=== PATIENT | female | born 1985 ===

== ENCOUNTER 2016-07-31 23:08 | Emergency (ER) | payer SELFPAY | END 2016-08-01 00:15 | disposition home or self-care (01) | LOC: H.EROB2 23:08 | DX: O47.02 False labor before 37 completed weeks of gestation, second trimester (principal); Z3A.20 20 weeks gestation of pregnancy ==

== ENCOUNTER 2016-10-25 08:14 | Emergency (ER) | payer SELFPAY ==
[2016-10-25 09:38] LABS: HEMATOCRIT 37.1 % (34.0-47.0); MEAN CELL VOLUME 91.5 fl (81.0-99.0); MEAN CORPUSCULAR HEMOGLOBIN 29.9 pg (27.0-31.0); MEAN CORPUSCULAR HGB CONC 32.7 g/dL (33.0-37.0); RED CELL DISTRIBUTION WIDTH 14.5 % (11.5-14.5); WHITE BLOOD COUNT 8.5 K/uL (4.8-10.8)
--- NOTE | 2016-10-25 09:59 | OBHP ---
Datetime: 10/25/2016 09:27 IP Adm Impression: Term, intrauterine IP Admit Plan: Observation/Evaluation; Discharge home Admit Comment, IP Provider: 31 y/o @ 41.0 weeks via LMP and 13 wk u/s presents for IOL. No comp laints. Reports very mild (2/10 pain) ctx every hour or more. Denies VB/LOF and reports good FM. Coy es fever/chills, headaches, visual disturbances, epigastric pain, CP/SOB, N/V/D/C, urinary symptoms. : CFH, uncomplicated course. O+, Ab neg, GBS neg, HBsAG neg, HIV/RPR neg, Rubella Immune, PPD neg, GC/CHL neg, Tdap on 08/11. POBHx: 2 NSVDs, FT, uncomplicated PMHx: none MEDS: PNVs PsurgHx: none Social: denies ETOH, Tobacco, drug abuse A/P: 31 y/o @ 41.0 weeks IUP for scheduled IOL. OBH ADDENDUM: Pt seen _ exmined by me. agree w/ above s: denies srom, decreased fm or vag bleeding p: pt prefers to return to [facility] tonight for induction. return @ 18:oo Pelvic Type - PN: Adequate Extremities - PN: Normal Abdomen - PN: Normal Back - PN: Normal Breast - PN: Normal Lungs - PN: Normal Heart - PN: Normal Thyroid - PN: Normal Neurologic - PN: Normal HEENT - PN: Normal General - PN: Normal Presentation-Admit: Vertex FHR - Baseline A Provider: 140 Membranes, Provider: Intact Contraction Comments Provider: q12 min Comments, ACOG Physical Exam: ROS: 12 points reviewed, found to be negative Bedside u/s: fetus in vertex position EGA AdmitDate IP: 41.0 Vital Signs Provider: Reviewed; Within Normal Limits IP Chief Complaint: Scheduled induction of labor NICHD Variability Prov Fetus A: Moderate 6-25bpm NICHD Accel Fetus A IP Provider: 15X15 FHR Category Provider Fetus A: Category I NICHD Decel Fetus A IP Provider: None Dilatation, Provider: 1 Effacement, Provider: 60 Station, Provider: -2 Genitourinary Exam: Normal DTRs - PN: Normal
== END 2016-10-25 11:00 | disposition home or self-care (01) ==
LOC: H.EROB2 08:14 → H.L&D 10:55 → H.EROB2 11:00
DX: O48.0 Post-term pregnancy (principal); Z3A.41 41 weeks gestation of pregnancy; O47.1 False labor at or after 37 completed weeks of gestation

== ENCOUNTER 2016-10-25 21:05 | Inpatient (IN) | payer MEDICAID, SELFPAY ==
[2016-10-25 21:22] VITALS: BMI 32.5
[2016-10-25] MEDS ORDERED: Lactated Ringer's 1,000 ML IV SCH ×2 (21:22→21:30)
[2016-10-25] MEDS ORDERED: Nalbuphine 20 mg/ml Inj (1 ml) IVP PRN (21:38)
[2016-10-25 22:28] LABS: BASO % 0.3 % (0.0-2.0); EOS # 0.1 K/uL (0.0-0.7); EOS % 0.8 % (0.0-4.0); LYMPH # 2.4 K/uL (1.0-4.3); LYMPH % 25.5 % (20.0-40.0); MEAN CELL VOLUME 91.7 fl (81.0-99.0); MEAN CORPUSCULAR HEMOGLOBIN 30.5 pg (27.0-31.0); MEAN CORPUSCULAR HGB CONC 33.3 g/dL (33.0-37.0); MEAN PLATELET VOLUME 10.5 fl (7.2-11.7); MONO # 0.7 K/uL (0.0-0.8); MONO % 7.1 % (0.0-10.0); NEUT # 6.2 K/uL (1.8-7.0); NEUT % 66.3 % (50.0-75.0); RED CELL DISTRIBUTION WIDTH 14.2 % (11.5-14.5); WHITE BLOOD COUNT 9.3 K/uL (4.8-10.8)
[2016-10-26 02:13] VITALS: BP 101/57; PULSE 57; RESP 17; TEMP 97.9
--- NOTE | 2016-10-26 07:40 | OBHP ---
Datetime: 10/25/2016 21:26 IP Adm Impression: Term, intrauterine IP Admit Plan: Admit to unit; Initiate labor protocol; Initiate labor induction protocol Admit Comment, IP Provider: 31 y/o @ 41.0 weeks via LMP and 13 wk u/s presents for IOL. No comp laints. Reports very mild (2/10 pain) ctx every hour or more. Denies VB/LOF and reports good FM. Coy es fever/chills, headaches, visual disturbances, epigastric pain, CP/SOB, N/V/D/C, urinary symptoms. : CFH, uncomplicated course. O+, Ab neg, GBS neg, HBsAG neg, HIV/RPR neg, Rubella Immune, PPD neg, GC/CHL neg, Tdap on 08/11. POBHx: 2 NSVDs, FT, uncomplicated PMHx: none MEDS: PNVs PsurgHx: none Social: denies ETOH, Tobacco, drug abuse A: 31 y/o @ 41.0 weeks IUP for scheduled IOL. P: admit to unit initiate labor protocol initiate induction protocol continuous monitoring LR IV bolus LR IV @ 125 cervidil ordered for induction CBC w/ diff ordered type and screen ordered anticipate vaginal delivery Cervidil in @ 22:00 Ty Zelaya MD Instruction Librarian OBH ADDENDUM: pt seen _ examined by me. agree with above assessment and plan. Pelvic Type - PN: Adequate Extremities - PN: Not Done Abdomen - PN: Normal Back - PN: Not Done Breast - PN: Not Done Lungs - PN: Normal Heart - PN: Normal Thyroid - PN: Not Done Neurologic - PN: Not Done HEENT - PN: Normal General - PN: Normal FHR - Baseline A Provider: 140 Membranes, Provider: Intact IP Hx Assessment: The History has been Reviewed and is Current EGA AdmitDate IP: 41.0 Vital Signs Provider: Reviewed; Within Normal Limits IP Chief Complaint: Scheduled induction of labor NICHD Variability Prov Fetus A: Moderate 6-25bpm NICHD Accel Fetus A IP Provider: 15X15 FHR Category Provider Fetus A: Category I NICHD Decel Fetus A IP Provider: None Dilatation, Provider: 1 Effacement, Provider: 60 Station, Provider: -2 Genitourinary Exam: Normal DTRs - PN: Not Done
--- NOTE | 2016-10-26 07:46 | OBADHP ---
Datetime: 10/25/2016 21:26 Admit Comment, IP Provider: 31 y/o @ 41.0 weeks via LMP and 13 wk u/s presents for IOL. No comp laints. Reports very mild (2/10 pain) ctx every hour or more. Denies VB/LOF and reports good FM. Coy es fever/chills, headaches, visual disturbances, epigastric pain, CP/SOB, N/V/D/C, urinary symptoms. : CFH, uncomplicated course. O+, Ab neg, GBS neg, HBsAG neg, HIV/RPR neg, Rubella Immune, PPD neg, GC/CHL neg, Tdap on 08/11. POBHx: 2 NSVDs, FT, uncomplicated PMHx: none MEDS: PNVs PsurgHx: none Social: denies ETOH, Tobacco, drug abuse A: 31 y/o @ 41.0 weeks IUP for scheduled IOL. P: admit to unit initiate labor protocol initiate induction protocol continuous monitoring LR IV bolus LR IV @ 125 cervidil ordered for induction CBC w/ diff ordered type and screen ordered anticipate vaginal delivery Cervidil in @ 22:00 Ty Zelaya MD Dynamo Repairer OBH ADDENDUM: pt seen _ examined by me. agree with above assessment and plan. Pelvic Type - PN: Adequate Extremities - PN: Not Done Abdomen - PN: Normal Back - PN: Not Done Breast - PN: Not Done Lungs - PN: Normal Heart - PN: Normal Thyroid - PN: Not Done Neurologic - PN: Not Done HEENT - PN: Normal General - PN: Normal FHR - Baseline A Provider: 140 Membranes, Provider: Intact IP Hx Assessment: The History has been Reviewed and is Current Vital Signs Provider: Reviewed; Within Normal Limits IP Chief Complaint: Scheduled induction of labor NICHD Variability Prov Fetus A: Moderate 6-25bpm NICHD Accel Fetus A IP Provider: 15X15 FHR Category Provider Fetus A: Category I NICHD Decel Fetus A IP Provider: None Dilatation, Provider: 1 Effacement, Provider: 60 Station, Provider: -2 Genitourinary Exam: Normal DTRs - PN: Not Done EGA AdmitDate IP: 41.0 IP Adm Impression: Term, intrauterine IP Admit Plan: Admit to unit; Initiate labor protocol; Initiate labor induction protocol Datetime: 10/25/2016 09:27 Presentation-Admit: Vertex Contraction Comments Provider: q12 min Comments, ACOG Physical Exam: ROS: 12 points reviewed, found to be negative Bedside u/s: fetus in vertex position
[2016-10-26] MEDS ORDERED: Oxytocin 30 units/LR 500ML 30 U/500 ML BAG IV SCH (10:35)
[2016-10-26] MEDS ORDERED: Oxytocin 30 units/LR 500ML 30 U/500 ML BAG IV ONE (10:45)
--- NOTE | 2016-10-26 11:03 | OBPN ---
Datetime: 10/26/2016 10:55 IP Progress Impression: Normal progression of labor; Reassuring heart rate IP Informed Consent Obtain: Vaginal Delivery; Risks, Benefits and Alternatives Discussed IP Progress Plan: Augmentation Pool Provider: Negative Membranes, Provider: Intact Contraction Comments Provider: occ FHR - Baseline A Provider: 140 Presentation-Admit: Vertex IP Progress Note Comment: OB Hospitalist oncall...sign out rec'd earlier Cervidil removed. Latnetn phase of labor Discussion with pt...will start pitocin augmentation NICHD Accel Fetus A IP Provider: 15X15 FHR Category Provider Fetus A: Category I NICHD Variability Prov Fetus A: Moderate 6-25bpm NICHD Decel Fetus A IP Provider: None Datetime: 10/25/2016 21:26 Vital Signs Provider: Reviewed; Within Normal Limits Dilatation, Provider: 1 Effacement, Provider: 60 Station, Provider: -2
[2016-10-26] MEDS ORDERED: Oxycodone/Acetaminophen 5/325 mg Tab PO PRN ×2 (13:28→15:37)
[2016-10-26] MEDS ORDERED: Benzocaine/Menthol SPRAY TOP PRN (13:28)
--- NOTE | 2016-10-26 16:56 | OBDS ---
DELIVERY PERSONNEL Delivery Doctor: Yg Castro DO Dialysis Nurse: Nubia Tapia RN Resident: Jamal MATERNAL INFORMATION Delivery Anesthesia: Local Medications in Delivery: pitocin 30units Estimated Blood Loss (ml): 200 Placenta Cultured: No Maternal Complications: None Provider Comments: Over intact perineum, of live . Thin meconium noted upon delivery. I nfant was crying spontaneously and bulb suctioned nasopharygeally. 9,9. Peds was called. Fernandez pinedo was delivered intact spontaneously. EBL 200cc She remained stable LABOR SUMMARY EDC: 10/18/2016 00:00 No. Babies in Womb: 1 Attempted: No Labor Anesthesia: None LABOR INFORMATION Reason for Induction: Postterm Complete Dilatation: 10/26/2016 13:00 Cervical Ripening Agents: Cervidil (Annotations: cervidil placed by LENIN Zelaya MD) Oxytocin: Induction Group B Beta Strep: Negative Steroids Given: None Reason Steroids Not Administered: Not Applicable MEMBRANES Membranes Rupture Method: Spontaneous STAGES OF LABOR Stage 2 hrs: 0 Stage 2 min: 5 Stage 3 hrs: 0 Stage 3 min: 10 VAGINAL DELIVERY Episiotomy: None Laceration Extension: First Degree Laceration Type: Perineal Other Laceration: Left inner labial laceration Laceration Repair Note: 1% Lidocaine infiltrated (5cc). Left inner labial laceration repaired with 3.0 Vicryl Rapide and perineal laceratoin repaired with 2.0 Vicryl Rapide BABY A INFORMATION Infant Delivery Date/Time: 10/26/2016 13:05 Method of Delivery: Vaginal Born in Route : No : N/A Forceps: N/A Vacuum Extraction: N/A Shoulder Dystocia : No SHOULDER DYSTOCIA BABY A Infant Delivery Date/Time: 10/26/2016 13:05 PRESENTATION/POSITION BABY A Presentation: Cephalic Cephalic Presentation: Vertex Breech Presentation: N/A PLACENTA INFORMATION BABY A Placenta Delivery Time : 10/26/2016 13:15 Placenta Method of Delivery: Spontaneous Placenta Status: Delivered SCORES BABY A Heart Rate 1 min: >100 bpm Resp Effort 1 min: Good Cry Reflex Irritability 1 min: Cough or Sneeze or Pulls Away Muscle Tone 1 min: Active Motion Color 1 min: Body [place], Extremities Blue SCORE 1 MIN: 9 Heart Rate 5 min: >100 bpm Resp Effort 5 min: Good Cry Reflex Irritability 5 min: Cough or Sneeze or Pulls Away Muscle Tone 5 min: Active Motion Color 5 min: Body [place], Extremities Blue SCORE 5 MIN: 9 INFORMATION BABY A Gestational Age at Delivery: 40.0 Gestational Status: Infant Outcome : Liveborn Infant Condition : Stable Infant Sex: Male IDENTIFICATION/MEDS BABY A ID Band Number: [id number] WEIGHT/LENGTH BABY A Birthweight (gms): 3085 Infant Weight (lb): 6 Infant Weight (oz): 13 CORD INFORMATION BABY A No. Cord Vessels: 3 Nuchal Cord : N/A Cord Blood Taken: Yes Infant Suction: Mouth; Nose
[2016-10-26] MEDS: Benzocaine/Menthol SPRAY TOP PRN (22:10)
[2016-10-27] MEDS: Lansinoh for Breast Feeding Mothers TP PRN (06:18)
[2016-10-27 06:56] LABS: HEMATOCRIT 30.7 % (34.0-47.0); MEAN CELL VOLUME 92.2 fl (81.0-99.0); MEAN CORPUSCULAR HEMOGLOBIN 30.5 pg (27.0-31.0); MEAN CORPUSCULAR HGB CONC 33.1 g/dL (33.0-37.0); RED CELL DISTRIBUTION WIDTH 14.6 % (11.5-14.5); WHITE BLOOD COUNT 10.1 K/uL (4.8-10.8)
[2016-10-27] MEDS ORDERED: Multivitamin With Minerals Tab PO SCH (09:00)
--- NOTE | 2016-10-27 10:01 | OBPPN ---
Datetime: 10/27/2016 05:54 PP Pain Prov: Within normal limits PP Nausea Prov: Denies PP Flatus Prov: Yes PP BM Prov: Yes PP Breasts Prov: Not Done PP Heart Prov: Normal PP Lungs Prov: Normal PP Abdomen/Uterus Prov: Normal PP Lochia Prov: Normal PP Vulva/Perineum Prov: Not Done PP CVA Tenderness Prov: Not Done PP Extremities Prov: Not Done PP C/S Incision Prov: Not Applicable PP Progress Prov: Normal PP Impression Prov: Normal progression PP Plan Prov: Continue present management PP Progress Note Prov: 31 y/o now seen and examined at bedside. Patient had uneventful overnig ht. Patient reports mild pelvic pain controlled w/ pain meds. OOB/Ambulating w/o dizziness. Breast /bottle feeding w/o difficulty. Tolerating PO diet well. Lochia is less than menses in volume. Voi ding freely w/ no blood noted. Reports bowel movement. Denies fevers, chills, n/v/d, CP/SOB, lighth eadedness and calf pain. PE: GEN: A_O, resting comfortably in bed, NAD Lung: CTA B/L, no wheezing, rhonchi, or rales CVS: S1, S2 wnl, RRR Abd: +BS, firm fundus below umbilicus. EXT: no edema, negative Papo's, calves non-tender Assessment: 31 y/o now s/p on 10/26/2016 @ 13:05 tolerating pain w/ medication, tolerati ng oral intake, adequate urine output, doing well on PPD1. Plan: Percocet 5/325 mg 1-2 tabs PO Q6h prn for mod/severe pain. Ibuprofen 600 mg 1 tab Q6h PO pr n for mild pain. Encourage breast feeding and ambulation. Ty Zelaya M.D. Quality Assurance Associate PGY-1 The patient was seen with the resident and I agree with the note encourage ambulation, regular t and to spread discharge in a.m. IP PP Procedures: None Vital Signs Provider PP: Reviewed; Within Normal Limits
[2016-10-27] MEDS: Multivitamin With Minerals Tab PO SCH (16:32)
[2016-10-28] MEDS: Multivitamin With Minerals Tab PO SCH (09:03)
[2016-10-28] MEDS: Benzocaine/Menthol SPRAY TOP PRN (09:03)
[2016-10-28] MEDS: Lansinoh for Breast Feeding Mothers TP PRN (09:04)
--- NOTE | 2016-10-28 12:24 | OBPPN ---
Datetime: 10/28/2016 05:31 PP Pain Prov: Within normal limits PP Nausea Prov: Denies PP Flatus Prov: Yes PP BM Prov: Yes PP Breasts Prov: Normal PP Heart Prov: Normal PP Lungs Prov: Normal PP Abdomen/Uterus Prov: Normal PP Lochia Prov: Normal PP Vulva/Perineum Prov: Normal PP CVA Tenderness Prov: Normal PP Extremities Prov: Normal PP C/S Incision Prov: Not Applicable PP Progress Prov: Normal PP Impression Prov: Normal progression PP Plan Prov: Continue present management; Discharge PP Progress Note Prov: 31 y/o now seen and examined at bedside. Patient had uneventful overnig ht. Patient reports mild pelvic pain controlled w/ pain meds. OOB/Ambulating w/o dizziness. Breast /bottle feeding w/o difficulty. Tolerating PO diet well. Lochia is less than menses in volume. Voi ding freely w/ no blood noted. Reports no bowel movement. Denies fevers, chills, n/v/d, CP/SOB, lig htheadedness and calf pain. PE: GEN: A_O, resting comfortably in bed, NAD Lung: CTA B/L, no wheezing, rhonchi, or rales CVS: S1, S2 wnl, RRR Abd: +BS, firm fundus below umbilicus. EXT: no edema, negative Papo's, calves non-tender Assessment: 31 y/o now s/p on 10/26/2016 @ 13:05 tolerating pain w/ medication, tolerati ng oral intake, adequate urine output, doing well on PPD2. Plan: Percocet 5/325 mg 1-2 tabs PO Q6h prn for mod/severe pain. Ibuprofen 600 mg 1 tab Q6h PO pr n for mild pain. Encourage breast feeding and ambulation. Discharge today Ty Zelaya M.D. Piped Pocket Machine Operator PGY-1 IP PP Procedures: None Vital Signs Provider PP: Reviewed; Within Normal Limits
== END 2016-10-28 11:25 | disposition home or self-care (01) | DRG 373 ==
LOC: H.EROB2 21:05 → H.L&D 21:23 → H.OB/GYN 10-26 15:15
PROVIDERS: ADMIT Obstetrics & Gynecology; ATTEND Obstetrics & Gynecology
PROC: 4A1HXCZ Monitoring of Products of Conception, Cardiac Rate, External Approach (ICD-10-PCS; 2016-10-25)
PROC: 10E0XZZ Delivery of Products of Conception, External Approach (ICD-10-PCS; principal; 2016-10-26)
PROC: 0HQ9XZZ Repair Perineum Skin, External Approach (ICD-10-PCS; 2016-10-26)
DX: O48.0 Post-term pregnancy (principal); O77.0 Labor and delivery complicated by meconium in amniotic fluid; O70.0 First degree perineal laceration during delivery; Z3A.41 41 weeks gestation of pregnancy; Z37.0 Single live birth